=== PATIENT | male | born 1980 | race Caucasian/White ===

== ENCOUNTER 2021-08-19 14:36 | Outpatient (CLI) | payer MEDICAID, SELFPAY ==
[2021-08-19] MEDS: 0.9% Saline Lock 10 ML Syringe IV (14:50)
[2021-08-19 14:51] VITALS: BP 131/94; PULSE 91; RESP 16; TEMP 36.6; O2SAT 99; BMI 26.2
[2021-08-19 15:42] VITALS: BP 129/79; PULSE 80; RESP 16; TEMP 36.8; O2SAT 99
[2021-08-19 16:43] VITALS: BP 135/90; PULSE 63; RESP 16; TEMP 36.7; O2SAT 100
== END 2021-08-19 16:47 | disposition home or self-care (01) ==
LOC: MS3OUT 14:36 → MS3 14:37
PROVIDERS: Referring Provider Nurse Practitioner Adult Health; Visit Provider Nurse Practitioner Adult Health
DX: Z23 Encounter for immunization (principal); U07.1 COVID-19
CPT/HCPCS: J7050; M0245; Q0245; A4216